=== PATIENT | female | born 2000 | race Caucasian/White ===

== ENCOUNTER 2021-06-26 01:07 | Emergency (ER) | payer OTHER ==
[~2021-06-26] VITALS: Ht 144.8 cm; Wt 62.9 kg
--- NOTE | ~2021-06-26 | EMS ---
[facility] [address] [place] [address] EMS Patient Care Report Name: MAURI POMPA Room #: DEP Kirsten#: [id number] Admission: 06/26/21 Attend Phys: Discharge: 06/26/21 Date of : [birth year] Report #: [id number] THIS REPORT FOR: //name// Report Transmitted: 06/26/2021 07:42 EMS Care Summary [place], [place]/[facility] Incident [id number] @ 06/26/2021 00:21 Incident Location [address] [place] [address] Patient MAURI POMPA Female, 20 Years 2000 Patient Address [address] [place] [address] [place] [address] Patient History Gallstone, Patient Allergies Iodine, Patient Medications None Reported, Chief Complaint intoxication Disposition Transported No Lights/[place] Dispatch Reason Convulsions/Seizure Transported To [facility] Narrative arrived to find pt on floor on side, being held by roommate. pt is intoxicated and took and "allergy pill" prior to incident. pt told friends she was going [address] [address] EMS Patient Care Report Name: MAURI POMPA Room #: DEP Kirsten#: [id number] Admission: 06/26/21 Attend Phys: Discharge: 06/26/21 Date of : [birth year] Report #: [id number] to pass out. they caught her when she fell and report that pt started to have 4 sz over the next 7 min. bystanders report atypical sz activity. they state pt ext "shook a little bit" and for seconds at a time. no sz hx. pt does not appear post ictal on our arrival. pt falls asleep if undisturbed and appears mildly obtunded from alcohol and allergy meds combination. pt carried on sandra tree killer to [facility] [place] as listed in flow chart. pt conversational during transport but falls asleep if not stimulated. no changes Initial Vitals @00:37P: 105,R: 20,BP: 115/73,Pain: 0/10,GCS: 15,Glucose: 104,SpO2: 97,Revised Trauma: 12, Assessments @00:30MENTAL:Other,Person Oriented,Time Oriented,Place Oriented,SKIN:No Abnormalities,HEENT:Head/Face: No Abnormalities,LUNG SOUNDS:ABDOMEN:PELVIS//GI:EXTREMITIES:PULSE:Radial: 2+ Normal,NEURO:Seizures,Other, Impression Alcohol use Procedures @00:39Saline Lock 10cc (20 ga) Site: Hand-RightResponse: UnchangedSucceeded@00:35StretcherResponse: Unchanged@00:373-Lead ECGResponse: Unchanged@00:30ALS AssessmentResponse: Unchanged Timeline 00:10,Call Received 00:10,Dispatch Notified 00:21,Dispatched 00:23,En Route 00:27,On Scene 00:30,At Patient 00:30,ALS Assessment,Response: Unchanged 00:35,Stretcher,Response: Unchanged 00:37,BP: 115/73 M,PULSE: 105,RR: 20 R,SPO2: 97 Ox,ETCO2: ,B,PAIN: 0,GCS: 15, 00:37,3-Lead ECG,Response: Unchanged 00:39,Saline Lock 10cc 20 ga Site: Hand-Right,Response: UnchangedSucceeded, 00:43,Depart Scene 00:53,At Destination 01:13,Call Closed Disclaimer v1.1 Copyright 2020 [facility] This EMS Care Summary contains data elements from the applicable legal record [facility] [address] [place] [address] EMS Patient Care Report Name: CARLI POMPAINE [facility] [id number] Admission: 06/26/21 Attend Phys: Discharge: 06/26/21 Date of : [birth year] Report #: [id number] (which may be displayed differently). It is designed to provide pertinent information for the following purposes: continuity of care, clinical quality, and state data reporting. The complete legal record is available to ED staff and administrators of the receiving hospital in [employer] Patient Tracker. All data is provided "as is."
[2021-06-26] MEDS ORDERED: [UNRECOGNIZED DRUG - REMARK] PO (01:15)
[2021-06-26 01:22] LABS: BASOPHILS 0.7 % (0.0-2.0); EOSINOPHILS 2.5 % (0.0-3.0); HEMATOCRIT 41.7 % (37.0-47.0); HEMOGLOBIN 14.1 gm/dL (12.0-15.0); LYMPHOCYTES 30.5 % (24.0-44.0); MCH 30.4 pg (26.0-34.0); MCHC 33.9 g/dL (28.0-37.0); MCV 89.7 fL (80.0-100.0); MONOCYTES 7.4 % (1.0-8.0); PLATELET COUNT 208 thou/uL (150-400); POLYS 58.9 % (36.0-66.0); RBC 4.65 mil/uL (4.20-5.00); RDW 13.1 % (10.5-14.5); WBC 6.8 thou/uL (4.0-11.0)
[2021-06-26 01:29] LABS: CALCIUM 8.6 mg/dL (8.5-10.1); CREATININE 0.8 mg/dL (0.6-1.0); POTASSIUM 3.3 mmol/L (3.5-5.1)
[2021-06-26 01:35] LABS: ALBUMIN 3.9 g/dL (3.4-5.0); TOTAL BILIRUBIN 0.2 mg/dL (0.2-1.0); TOTAL PROTEIN 6.7 g/dL (6.4-8.2)
[2021-06-26 02:03] LABS: URINE BILIRUBIN NEGATIVE (Negative); URINE BLOOD NEGATIVE (Negative); URINE CLARITY CLEAR; URINE COLOR YELLOW; URINE GLUCOSE-RANDOM* NEGATIVE (Negative); URINE KETONES NEGATIVE (Negative); URINE LEUKOCYTES-REFLEX NEGATIVE (Negative); URINE NITRITE-REFLEX NEGATIVE (Negative); URINE PROTEIN (DIPSTICK) NEGATIVE (Negative); URINE UROBILINOGEN 0.2 E.U./dl (0.2-1.0)
[2021-06-26 03:16] VITALS: BP 114/58
--- NOTE | 2021-06-26 11:53 | EKG ---
[address] [address] ELECTROCARDIOGRAM REPORT Name: POMPAMAURI [facility] [id number] Admission: 06/26/21 Attend Phys: Discharge: 06/26/21 Date of : [birth year] Report #: [id number] [facility] ED Test Date: 2021-06-26 Test Time: 01:10:29 Pat Name: MAURI POMPA Department: Room: Gender: F [employer] Specialist: CAITLIN : 2000 Requested By: Ricky Lewis Order Number: [id number] MD: Abner Fu Measurements Intervals [place] Rate: 102 P: 55 CA: 155 QRS: 27 QRSD: 96 T: 53 QT: 329 QTc: 429 Interpretive Statements Sinus tachycardia No previous ECG available for comparison Electronically Signed On 06-26-2021 11:52:41 CDT by Abner Fu [email or web address] <ELECTRONICALLY SIGNED> By: Abner Fu MD 06/26/21 1152 0110 0110 Abner Fu MD /EPI
== END 2021-06-26 03:26 | disposition home or self-care (01) ==
LOC: ER 01:07
PROVIDERS: Emergency Medicine
DX: F10.129 Alcohol abuse with intoxication, unspecified (principal); Y90.9 Presence of alcohol in blood, level not specified; R55 Syncope and collapse; Z90.89 Acquired absence of other organs; Z91.048 Other nonmedicinal substance allergy status